=== PATIENT | male | born 1945 | race Caucasian/White ===

== ENCOUNTER → 2018-03-13 | Emergency (ER) | payer MEDICARE ==
--- NOTE | 2018-03-13 05:06 | ERPHSYRPT ---
- History of Present Illness Time Seen by Provider: 03/13/18 04:20 Source: patient Physician History: PATIENT WITH A HISTORY OF ENLARGED PROSTATE WITH INDWELLING GASTELUM CATHETER COMPLAINS OF A LEAKING GASTELUM LEG BAG. HERE FOR LEG BAG REPLACEMENT. PATIENT REFUSED TO UNDRESS AND CHANGE INTO A HOSPITAL GOWN, REFUSES EXAM, JUST WANTS A LEG BAG. Timing/Duration: today Activites at Onset: none Severity of Pain-Max: none Severity of Pain-Current: none Associated Symptoms: denies symptoms Prior abdominal problems: none Sexual intercourse history: non-contributory Allergies/Adverse Reactions: TAPE Allergy (Uncoded 03/16/15 13:47) Home Medications: Amlodipine Besylate/Benazepril [Amlodipine-Benazepril 10-20 mg] 1 ea PO DAILY [History] Levothyroxine Sodium 50 Mcg [Synthroid 50 Mcg] 50 mcg PO DAILY 03/05/15 [ History] Metformin HCl 500 mg [Glucophage 500 MG] 500 mg DAILY 03/05/15 [History] Hx Tetanus, Diphtheria Vaccination/Date Given: Yes (2014) Hx Influenza Vaccination/Date Given: Yes (2014) Hx Pneumococcal Vaccination/Date Given: Yes - Past Medical History Pertinent Past Medical History: Yes Neurological History: No Pertinent History ENT History: No Pertinent History Cardiac History: Hypertension Respiratory History: No Pertinent History Endocrine Medical History: Diabetes Type II, Hypothyroidism Musculoskeletal History: No Pertinent History GI Medical History: No Pertinent History History: No Pertinent History Psycho-Social History: No Pertinent History Male Reproductive Disorders: No Pertinent History - Past Surgical History Past Surgical History: Yes Neuro Surgical History: No Pertinent History Cardiac: No Pertinent History Respiratory: No Pertinent History Gastrointestinal: Hernia Repair Genitourinary: No Pertinent History Musculoskeletal: Orthopedic Surgery Male Surgical History: No Pertinent History Other Surgical History: back surg - Social History Smoking Status: Never smoker Exposure to second hand smoke: No Drug Use: none Patient Lives Alone: No - Review of Systems Constitutional: No Fever, No Chills Eyes: No Symptoms Ears, Nose, & Throat: No Symptoms Respiratory: No Symptoms, No Cough, No Dyspnea Cardiac: No Symptoms, No Chest Pain, No Edema, No Syncope Abdominal/Gastrointestinal: No Abdominal Pain, No Nausea, No Vomiting, No Diarrhea Genitourinary Symptoms: No Symptoms, No Dysuria Musculoskeletal: No Symptoms, No Back Pain, No Neck Pain Skin: No Symptoms (HAS A LEAK IN GASTELUM LEG BAG), No Rash Neurological: No Dizziness, No Focal Weakness, No Sensory Changes Psychological: No Symptoms Endocrine: No Symptoms All Other Systems: Reviewed and Negative - Physical Exam General Appearance: no apparent distress (PATIENT REFUSES EXAM) - Progress Progress Note: 03/13/18 05:06 PATIENT REFUSES EXAM Counseled pt/family regarding: need for follow-up - Departure Departure Disposition: AMA Clinical Impression: LEAKING GASTELUM LEG BAG Condition: Stable Critical Care Time: No Referrals: DEONNA NAQVI MD [Primary Care Provider] -
== END | disposition left against medical advice (07) ==
LOC: ED 03:44
DX: T83.038A Leakage of other urinary catheter, initial encounter (principal); Z79.899 Other long term (current) drug therapy
CPT/HCPCS: 99281

== ENCOUNTER 2020-06-16 10:59 | Emergency (ER) | payer MEDICARE ==
--- NOTE | 2020-06-16 11:32 | ERPHSYRPT ---
- History of Present Illness Time Seen by Provider: 06/16/20 11:27 Patient Subjective Stated Complaint: Cat bite Triage Nursing Assessment: Patient ambulated back to ED and transferred self to bed. Patient A+O X 3. Patient's skin pink, warm and dry. Patient states he was petting his house cat when the cat turned and bit his right hand 2nd digit knuckle. 2cm X 2 cm laceration noted to right hand, 2nd digit knuckle. Patient denies pain or discomfort. Physician History: Patient suffered an superficial cat bite to the second metatarsophalangeal joint right hand. No other bite lucio noted the laceration occurred when he moved his hand and the tooth caught in the skin he has full extension flexion and sensation. Minimal bleeding. He does report a recent tetanus toxoid Timing/Duration: today Quality: painful Severity: mild Location: hands (R) Allergies/Adverse Reactions: TAPE Allergy (Uncoded 06/16/20 11:07) Home Medications: Amlodipine Besylate/Benazepril [Amlodipine-Benazepril 10-20 mg] 1 ea PO DAILY 03/05/15 [History] Levothyroxine Sodium 50 Mcg [Synthroid 50 Mcg] 50 mcg PO DAILY 03/05/15 [ History] Metformin HCl 500 mg [Glucophage 500 MG] 500 mg PO DAILY 03/05/15 [History] Hx Tetanus, Diphtheria Vaccination/Date Given: Yes (2018) Hx Influenza Vaccination/Date Given: Yes Hx Pneumococcal Vaccination/Date Given: Yes Immunizations Up to Date: Yes Travel Risk - International Travel Have you traveled outside of the country in past 3 weeks: No - Coronavirus Screening Are you exhibiting any of the following symptoms?: No Close contact with a COVID-19 positive Pt in past 14-21 Days: No - Review of Systems Constitutional: No Fever, No Chills Eyes: No Symptoms Ears, Nose, & Throat: No Symptoms Respiratory: No Cough, No Dyspnea Cardiac: No Chest Pain, No Edema, No Syncope Abdominal/Gastrointestinal: No Abdominal Pain, No Nausea, No Vomiting, No Diarrhea Genitourinary Symptoms: No Dysuria Musculoskeletal: No Back Pain, No Neck Pain Skin: No Rash Neurological: No Dizziness, No Focal Weakness, No Sensory Changes Psychological: No Symptoms Endocrine: No Symptoms All Other Systems: Reviewed and Negative - Past Medical History Pertinent Past Medical History: Yes Neurological History: No Pertinent History ENT History: No Pertinent History Cardiac History: Hypertension Respiratory History: No Pertinent History Endocrine Medical History: Diabetes Type II Musculoskeletal History: Osteoarthritis GI Medical History: No Pertinent History History: No Pertinent History Psycho-Social History: No Pertinent History Male Reproductive Disorders: No Pertinent History Other Medical History: LEFT TKR 05/2019. HX CHADD. INGUINAL HERNIA REPAIRS. - Past Surgical History Past Surgical History: Yes Neuro Surgical History: No Pertinent History Cardiac: No Pertinent History Respiratory: No Pertinent History Gastrointestinal: Hernia Repair Genitourinary: No Pertinent History Musculoskeletal: Orthopedic Surgery Male Surgical History: No Pertinent History Other Surgical History: back surg - Social History Smoking Status: Never smoker Exposure to second hand smoke: No Drug Use: none Patient Lives Alone: No - Nursing Vital Signs Nursing Vital Signs: Initial Vital Signs Temperature 98.0 F 06/16/20 11:08 Pulse Rate 52 L 06/16/20 11:08 Respiratory Rate 18 06/16/20 11:08 Blood Pressure 205/89 06/16/20 11:08 O2 Sat by Pulse Oximetry 98 06/16/20 11:08 Pain Scale Pain Intensity 0 - Physical Exam General Appearance: mild distress Eye Exam: PERRL/EOMI, eyes nml inspection Ears, Nose, Throat Exam: normal ENT inspection, other (Reduced hearing) Neck Exam: normal inspection, supple Respiratory Exam: No respiratory distress Extremity Exam: other (Extremity exam is normal in all extremities except the right upper the right hand has a 2 cm superficial laceration running transversely across the direction of the index finger over the metatarsal phalangeal joint. Flexion and extension against resistance is intact sensation is intact neurovascula) Neurologic Exam: alert, oriented x 3, cooperative Skin Exam: laceration SpO2 Interpretation: normal SpO2: 98 O2 Delivery: Room Air Procedures - Laceration/Wound Repair Right Dorsal Hand Time of Procedure: 11:40 Wound Location: Right, hand Wound Length (cm): 2 Wound's Depth, Shape: superficial Wound Explored: clean Irrigated: Yes Hibiclens Prep: Yes Anesthesia: 1% Lidocaine Volume Anesthetic (ccs): 2 Wound Debrided: minimal Wound Repaired With: sutures Suture Size/Type: 4-0 Number of Sutures: 2 Layer Closure?: No Sterile Dressing Applied?: Yes Splint Applied?: No Sling Applied?: No - Course Nursing assessment & vital signs reviewed: Yes - Progress Progress: improved - Departure Departure Disposition: Home Clinical Impression: Cat bite of hand Condition: Good Critical Care Time: No Referrals: DEONNA NAQVI MD [Primary Care Provider] - Instructions: Animal Bites (DC) Prescriptions: Amoxicillin/Potassium Clav [Augmentin 875-125 Tablet] 875 mg PO BID 7 Days #14 tablet
[2020-06-16 11:42] VITALS: BP 169/87; PULSE 78; O2SAT 97
== END 2020-06-16 11:44 | disposition home or self-care (01) ==
LOC: ED 10:59
DX: S61.452A Open bite of left hand, initial encounter (principal); W55.01XA Bitten by cat, initial encounter
CPT/HCPCS: 12001; 99283